=== PATIENT | male | born 1950 | race Caucasian/White ===

== ENCOUNTER → 2016-04-10 | Outpatient (CLI) | payer BC ==
[~2016-04-10] MED LIST: IOHEXOL 300 MG/ML 100ML VIAL. IV ONE
--- NOTE | 2016-04-10 10:42 | KCIC ---
PROCEDURE CT left ankle with and without contrast dated 04/10/2016. 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 Evaluate for mass. Patient unable to have MRI due to pacemaker. TECHNIQUE Contiguous axial imaging of the left ankle performed with and without the administration of 70 cc Omnipaque 300. Thin cut coronal and sagittal reconstructions obtained.Exposure: One or more of the following individualized dose reduction techniques were utilized for this exam: 1. Automated exposure control. 2. Adjustment of the mA and/or kV according to patient size. 3. Use of iterative reconstruction technique. COMPARISON CT dated 03/05/2016. FINDINGS: Visualized portions of the distal peroneal nerve are within normal limits. No mass or abnormal enhancement. There is mild generalized muscle atrophy. No focal fatty atrophy of the anterior compartment extensor muscles. No fluid collection or mass. No abnormal enhancement. Ligaments and tendons are not well evaluated based on technique. No apparent tendon tear. No ankle joint effusion or loose body. Talar dome is intact. Plantar fascia and Achilles tendon are grossly intact. Visualized osseous structures unremarkable. Mild hypertrophic change at the subtalar joints. No destructive changes or periostitis. IMPRESSION - No evidence of abnormal enhancement or mass along the distal peroneal nerve. - No significant fatty atrophy of the anterior compartment musculature. Electronically signed by: Buck Damon (Apr 10, 2016 10:40:36)
== END | disposition home or self-care (01) ==
LOC: KCIC CT 09:32
PROVIDERS: ATTEND Psychiatry & Neurology Neurology with Special Qualifications in Child Neurology
DX: G57.32 Lesion of lateral popliteal nerve, left lower limb (principal)
CPT/HCPCS: Q9967

== ENCOUNTER → 2019-06-01 | Outpatient (CLI) | payer MEDICARE ==
--- NOTE | 2019-06-01 15:04 | CARD ---
MR#: [id number] Date of Study: 06/01/2019 Ordering Physician: MONTY PEPPER, Referring Physician: MONTY PEPPER, Tech: Vianey Jama APPROVED REPORT EXAM: Two-dimensional and M-mode echocardiogram with Doppler and color Doppler. Other Information Quality : AverageHR: 60bpm INDICATION CABG, Pacemaker 2D DIMENSIONS Left Atrium(2D)5.5 (1.6-4.0cm)IVSd1.5 (0.7-1.1cm) Aortic Root(2D)3.3 (2.0-3.7cm)LVDd4.8 (3.9-5.9cm) LVOT Diameter2.2 (1.8-2.4cm)PWd1.4 (0.7-1.1cm) LVDs4.0 (2.5-4.0cm)FS (%) 15.3 % SV34.0 mlLVEF(%)32.3 (>50%) Aortic Valve AoV Peak Jabier.107.7cm/Hussein Peak GR.4.6mmHg Mitral Valve MV E Ihywtyjf595.3cm/sMV DECEL [id number] MV A Cuirahbp95.9cm/sE/A Ratio1.6 MV A Mymgksva11qu Pulmonary Valve PV Peak Atdbdhps68.0cm/s Tricuspid Valve TR P. Rptnsoaz247bg/sTR Peak Gr.32mmHg Pulmonary Vein S1 Jedebkhh41.2cm/sD2 Vnujacai76.3cm/s PVa [id number] LEFT VENTRICLE The left ventricle is normal size. There is mild concentric left ventricular hypertrophy. Left ventri kajal systolic function is normal. The Ejection Fraction is 55-60%. There is normal LV segmental wall m otion. RIGHT VENTRICLE The right ventricle is normal size. There is normal right ventricular wall thickness. The right ventr icular systolic function is normal. ATRIA The left atrium is mildly dilated. The right atrium size is normal. A catheter is seen in the right a trium consistent with history. AORTIC VALVE The aortic valve is normal in structure and function. Doppler and Color Flow revealed no significant aortic regurgitation. There is no significant aortic valvular stenosis. MITRAL VALVE The mitral valve is normal in structure and function. There is no mitral valve stenosis. Doppler and Color Flow revealed no mitral valve regurgitation noted. TRICUSPID VALVE The tricuspid valve is normal in structure and function. Doppler and Color Flow revealed trace tricus pid regurgitation. There is no tricuspid valve stenosis. PULMONIC VALVE The pulmonary valve is normal in structure and function. GREAT VESSELS The aortic root is normal in size. The ascending aorta is normal in size. The IVC is normal in size a nd collapses >50% with inspiration. PERICARDIAL EFFUSION There is no evidence of significant pericardial effusion. Critical Notification Critical Value: No <Conclusion> Left ventricle systolic function is normal. The Ejection Fraction is 55-60%. There is normal LV segmental wall motion. Doppler and Color Flow revealed trace tricuspid regurgitation. There is no evidence of significant pericardial effusion. Signed by : Luis Burden, Electronically Approved : 06/01/2019 15:04:05
== END ==
LOC: ECHO 12:56
PROVIDERS: ATTEND Internal Medicine Cardiovascular Disease
DX: I51.7 Cardiomegaly (principal); Z95.1 Presence of aortocoronary bypass graft
CPT/HCPCS: 93306